=== PATIENT | female | born 1970 | race African-American/Black ===

== ENCOUNTER 2020-08-17 14:01 | Emergency (ER) | payer OTHER ==
[~2020-08-17] VITALS: Ht 160 cm; Wt 131.5 kg
[2020-08-17] MEDS ORDERED: PREDNISONE5 MG PO (14:41)
[2020-08-17] MEDS ORDERED: PENTASA500 MG PO (14:41)
[2020-08-17] MEDS ORDERED: KETOROLAC TROMETHAMINE 60 MG/2 ML VIAL IM ONE ×2 (15:00→15:45)
[2020-08-17] MEDS ORDERED: KETOROLAC TROMETHAMINE 60 MG/2 ML VIAL ONE (15:07)
[2020-08-17 16:58] VITALS: BP 150/95
== END 2020-08-17 16:45 | disposition home or self-care (01) ==
LOC: FSED 14:47
DX: S33.5XXA Sprain of ligaments of lumbar spine, initial encounter (principal); S23.3XXA Sprain of ligaments of thoracic spine, initial encounter; V43.52XA Car driver injured in collision with other type car in traffic accident, initial encounter; Y92.488 Other paved roadways as the place of occurrence of the external cause; K50.90 Crohn's disease, unspecified, without complications; I73.9 Peripheral vascular disease, unspecified
CPT/HCPCS: 72070; 72100; 96372; 99283; J1885

== ENCOUNTER 2020-09-06 18:57 | Emergency (ER) | payer MEDICARE, OTHER ==
[~2020-09-06] VITALS: Ht 160 cm; Wt 131.5 kg
[~2020-09-06 18:57] MED LIST: PENTASA500 MG PO; PREDNISONE5 MG PO
[2020-09-06] MEDS ORDERED: LIDOCAINE HCL 1% LOCAL INJ 20 ML VIAL INJ STA (19:23)
[2020-09-06] MEDS ORDERED: IBUPROFEN 200 MG TAB PO STA (19:23)
[2020-09-06] MEDS ORDERED: TETANUS/DIPHTHERIA TOX ADULT 0.5 ML SYR IM STA (19:23)
[2020-09-06] MEDS ORDERED: MUPIROCIN 2% OINT 22 GM TUBE TOP ONE (19:30)
[2020-09-06] MEDS ORDERED: ACETAMINOPHEN 325 MG TAB PO ONE (19:30)
[2020-09-06] MEDS ORDERED: KETOROLAC TROMETHAMINE 30 MG/ML VIAL ONE (20:48)
[2020-09-06] MEDS ORDERED: TETANUS/DIPHTHERIA TOX ADULT 0.5 ML SYR ONE (20:49)
== END 2020-09-06 20:54 | disposition home or self-care (01) ==
LOC: FSED 19:25
DX: S81.011A Laceration without foreign body, right knee, initial encounter (principal); W17.89XA Other fall from one level to another, initial encounter; Y93.01 Activity, walking, marching and hiking; Y92.480 Sidewalk as the place of occurrence of the external cause; K50.90 Crohn's disease, unspecified, without complications; I73.9 Peripheral vascular disease, unspecified; Z93.3 Colostomy status
CPT/HCPCS: 12002; 90471; 90714; 99283; J1885